=== PATIENT | male | born 1990 | race Caucasian/White ===

== ENCOUNTER 2016-07-11 16:53 | Emergency (ER) | payer BC, MEDICAID ==
--- NOTE | 2016-07-11 17:22 | ED Physician Chart ---
Chief Complaint/HPI - Patient Information Date Seen:: 07/11/16 Time Seen:: 16:50 Chief Complaint:: R upper posterior molar pain History of Present Illness:: Pain and carries Tooth #1 (#2 was extracted) for 2 days. Previous hx of periodontal infections. Pt. knows he needs dentist. Was on a PCN before. Allergies:: Allergies Allergy/AdvReac Type Severity Reaction Status Date / Time No Known Allergies Allergy Verified 07/11/16 17:08 Vitals:: Vital Signs - 8 hr 07/11/16 16:53 Temp 98.6 F HR 111 RR 18 BP 119/76 O2 Sat % 99 Historian:: Patient Review of Systems - Review of Systems General/Constitutional: No fever, No chills Skin: No skin lesions Head: No headache ENT: No earache, No sore throat, Other (dental pain R upper) Cardio Vascular: Chest pain, No chest pain Pulmonary: No SOB, No cough GI: No nausea, No vomiting, No diarrhea Neurological: No syncope Past Medical History - Past Medical History Past Medical History: No significant medical hx (No signif. hx other than dental ) Family History: None Social History: Smoker, No Alcohol Surgical History: other (toothe extracion) Psychiatricy History: None Family Medical History - Family Member Mother Other Medical History: denies family medical history Physical Exam - Physical Examination General/Constitutional: Awake, Well-developed, well-nourished, Alert, No distress, GCS 15, Non-toxic appearing Head: Atraumatic Eyes: Lids, conjuctiva normal, PERRL, EOMI Skin: Nl inspection ENMT: External ears, nose nl, TM canals nl, Nasal exam nl, Oropharynx nl, Tonsils nl Other ENMT comments:: Tenderness to tongue blade pleximetry. Neck: Nontender Respiratory: Nl effort/Exclusion, Clear to Auscultation, No Wheeze/Rhonchi/Rales Cardio Vascular: RRR, No murmur, gallop, rubs : No CVA tenderness Extremities: No tenderness or effusion, Full ROM Neuro/Psych: Alert/oriented ED Septic Shock - . Is Septic Shock (SBP<90, OR Lactate>4 mmol\L) present?: No - <6hrs of presentation: Vital Signs: Vital Signs - 8 hr 07/11/16 16:53 Temp 98.6 F HR 111 RR 18 BP 119/76 O2 Sat % 99 Reassessment (Disposition) - Diagnosis Diagnosis:: Dx: Acute periodontal infection - Aftercare/Follow up Instructions Aftercare/Follow-Up Instructions:: Counseled pt regarding lab results/diagnosis & need follow up Medication Prescribed:: Rx: PCN VK 500 one po q6h. Disp. #40. No refill Rx: Burket 5 one po q4h prn. Disp. #12. No refill - Patient Disposition Discharge/Transfer:: Home Condition at Disposition:: Stable
== END 2016-07-11 17:44 | disposition home or self-care (01) ==
LOC: ER 16:53
DX: K05.20 Aggressive periodontitis, unspecified (principal); F17.200 Nicotine dependence, unspecified, uncomplicated
CPT/HCPCS: Z7502